=== PATIENT | male | born 1995 | race Hispanic/Latino ===

== ENCOUNTER 2024-10-22 08:53 | Emergency (ER) | payer SELFPAY ==
[2024-10-22] MEDS ORDERED: Fluorescein Opthalmic Strip ONE (08:57)
[2024-10-22] MEDS ORDERED: Tetracaine 0.5% PF 4 ML BOT ONE (08:57)
[2024-10-22] MEDS ORDERED: Ondansetron PF 4 MG/2 ML Vial ONE (09:17)
[2024-10-22] MEDS ORDERED: Morphine 4 MG/ML VIAL ONE ×2 (09:17→09:19)
[2024-10-22] MEDS ORDERED: LevoFLOXacin 750 mg/D5W 150 ml Premix Bag ONE (09:18)
[2024-10-22 09:47] LABS: #Basophils 0.1 thou/uL (0.0-0.2); #Eosinophils 0.2 thou/uL (0.0-0.7); #Lymphocytes 2.3 thou/uL (1.20-3.40); #Monocytes 0.6 thou/uL (0.11-0.59); #Neutrophils 4.2 thou/uL (1.40-6.50); %Basophils 1.1 % (0.0-1.0); %Eosinophils 2.4 % (0.0-10.0); %Lymphocytes 31.8 % (21.0-51.0); %Monocytes 7.7 % (0.0-10.0); Hematocrit 46.6 % (42.0-52.0); Hemoglobin 14.7 g/dL (14.0-18.0); Mean Corpuscular HGB CONC 31.5 g/dL (32.0-36.0); Mean Corpuscular Hemoglobin 28.3 pg (27.0-31.0); Mean Corpuscular Volume 89.8 fl (78.0-98.0); Mean Platelet Volume 8.2 fL (7.4-10.4); Platelet Count 329 10x3/uL (130-400); Red Blood Cell (RBC) Count 5.18 mill/uL (4.70-6.10); White Blood Cell (WBC) Count 7.3 10x3/uL (4.8-10.8)
[2024-10-22 09:59] LABS: ALT (SGPT) 28 U/L (8-55); AST (SGOT) 18 U/L (5-34); Albumin 4.1 g/dL (3.5-5.0); Alkaline Phosphatase 89 U/L (40-110); Anion Gap 16 mmol/L (10-20); BUN (Urea Nitrogen) 22 mg/dL (8.9-20.6); Bilirubin, Total 0.5 mg/dL (0.2-1.2); Calc. Creatinine Clearance 0 mL/min (70-130); Calcium 9.4 mg/dL (7.8-10.44); Carbon Dioxide 21 mmol/L (22-29); Chloride 106 mmol/L (98-107); Estimated GFR 121; Globulin 3.4 g/dL (2.4-3.5); Glucose 93 mg/dL (70-105); Potassium 3.9 mmol/L (3.5-5.1); Protein, Total 7.5 g/dL (6.0-8.3); Sodium 139 mmol/L (136-145)
== END 2024-10-22 10:45 | disposition short-term general hospital (02) ==
LOC: MADERS 08:53
DX: S05.21XA Ocular laceration and rupture with prolapse or loss of intraocular tissue, right eye, initial encounter (principal); S05.11XA Contusion of eyeball and orbital tissues, right eye, initial encounter; W22.8XXA Striking against or struck by other objects, initial encounter
CPT/HCPCS: 70480; 80053; 85025; 96365; 96375; J1956; J2272; J2405